=== PATIENT | female | born 1990 | race Caucasian/White ===

== ENCOUNTER 2017-09-16 23:32 | Emergency (ER) | payer BC ==
[~2017-09-16] VITALS: Ht 167.6 cm; Wt 88.5 kg
[2017-09-17 00:15] LABS: ABSOLUTE NEUTROPHILS 4.7 thou/uL (1.4-8.2); BASOPHILS 0.9 % (0.0-2.0); EOSINOPHILS 3.3 % (0.0-3.0); HEMATOCRIT 40.5 % (37.0-47.0); LYMPHOCYTES 43.4 % (24.0-44.0); MCH 29.3 pg (26.0-34.0); MCHC 34.6 g/dL (28.0-37.0); MCV 84.5 fL (80.0-100.0); MONOCYTES 7.6 % (1.0-8.0); PLATELET COUNT 439 thou/uL (150-400); POLYS 44.8 % (36.0-66.0); RBC 4.79 mil/uL (4.20-5.00); RDW 13.9 % (10.5-14.5); WBC 10.5 thou/uL (4.0-11.0)
[2017-09-17 00:32] LABS: CALCIUM 9.9 mg/dL (8.5-10.1); CREATININE 0.6 mg/dL (0.6-1.0); POTASSIUM 3.7 mmol/L (3.5-5.1)
[2017-09-17 00:37] LABS: TOTAL BILIRUBIN 0.3 mg/dL (<0.1-1.0); TOTAL PROTEIN 7.6 g/dL (6.4-8.2)
[2017-09-17] MEDS ORDERED: NAPROSYN500 MG PO ×2 (01:19→01:22)
[2017-09-17] MEDS ORDERED: ACETAMINOPHEN-1 EAC1 PO (01:19)
[2017-09-17] MEDS ORDERED: ANUSOL-HC25 MG RECTAL (01:21)
== END 2017-09-17 02:05 | disposition home or self-care (01) ==
LOC: ER 23:32
PROVIDERS: Emergency Medicine
DX: O03.9 Complete or unspecified spontaneous abortion without complication (principal); N94.10 Unspecified dyspareunia; K59.4 Anal spasm; Z3A.00 Weeks of gestation of pregnancy not specified